=== PATIENT | female | born 1985 | race Two or more races ===

== ENCOUNTER 2019-12-22 17:49 | Emergency (ER) | payer OTHER ==
[~2019-12-22] VITALS: Ht 165.1 cm; Wt 122.0 kg
== END 2019-12-22 19:54 | disposition home or self-care (01) ==
LOC: ER 17:49
DX: M62.830 Muscle spasm of back (principal)

== ENCOUNTER 2022-11-18 09:38 | Outpatient (CLI) | payer OTHER | END 2022-11-18 09:46 | disposition home or self-care (01) | LOC: RX STUDY 09:38 | PROVIDERS: ATTEND Obstetrics & Gynecology Maternal & Fetal Medicine | DX: N80.9 Endometriosis, unspecified (principal) ==

== ENCOUNTER 2023-07-14 10:55 | Emergency (ER) | payer OTHER ==
[~2023-07-14] VITALS: Ht 165.1 cm; Wt 117.9 kg
[2023-07-14] MEDS ORDERED: VOTRIENT200 MG PO (11:22)
[2023-07-14 14:39] LABS: HEMOGLOBIN 10.3 g/dL (12.0-15.00); MEAN CORPUSCULAR HEMOGLOBIN 22.1 pg (27.00-32.0); MEAN CORPUSCULAR HGB CONC 32.1 g/dl (32.0-36.0); PLATELET COUNT 287 K/uL (150-450); RED BLOOD COUNT 4.65 M/uL (4.00-6.00); RED CELL DISTRIBUTION WIDTH 18.7 % (11.5-14.5)
[2023-07-14 14:41] LABS: MEAN CELL VOLUME 68.9 fL (80.00-100.00)
[2023-07-14 14:53] LABS: CALCIUM 9.1 mg/dL (8.5-10.1); CREATININE SERUM 0.62 mg/dL (0.55-1.02); GFR 108.91; POTASSIUM 3.58 mEq/L (3.5-5.1)
== END 2023-07-14 16:51 | disposition home or self-care (01) ==
LOC: ER 10:55
PROVIDERS: General Practice
DX: U07.1 COVID-19 (principal); E11.9 Type 2 diabetes mellitus without complications

== ENCOUNTER 2023-07-26 17:06 | Emergency (ER) | payer OTHER ==
[~2023-07-26] VITALS: Ht 160 cm; Wt 86.2 kg
[~2023-07-26 17:06] MED LIST: VOTRIENT200 MG PO
[2023-07-26] MEDS ORDERED: DUI500 PO (21:07)
== END 2023-07-26 21:42 | disposition home or self-care (01) ==
LOC: ER 17:07
DX: J06.9 Acute upper respiratory infection, unspecified (principal); J32.9 Chronic sinusitis, unspecified; Z91.013 Allergy to seafood

== ENCOUNTER 2025-04-07 07:08 | Emergency (ER) | payer OTHER ==
[~2025-04-07] VITALS: Ht 162.6 cm; Wt 105.7 kg
[~2025-04-07 07:08] MED LIST changes: +DUI500 PO
[2025-04-07] MEDS ORDERED: METFORMIN HCL500 MG (07:24)
[2025-04-07] MEDS ORDERED: LIDOCAINE HCL 1% 10ML VIAL ONE (08:52)
[2025-04-07] MEDS ORDERED: CEFTRIAXONE SODIUM 1,000 MG VIAL ONE (08:52)
[2025-04-07] MEDS ORDERED: CEFTRIAXONE SODIUM 1,000 MG VIAL IM ONE (09:00)
[2025-04-07 09:17] LABS: BASO % 0.4 % (0.1-1.2); EOS # 0.05 (0.04-0.54); EOS % 1.0 % (0.7-7.0); LYMPH # 1.42 (1.18-3.74); LYMPH % 28.7 % (19.3-53.1); MEAN PLATELET VOLUME 10.30 fl (9.4-12.4); MONO # 0.30 (0.24-0.82); MONO % 6.1 % (4.7-12.5); NEUT # 3.14 (1.56-6.13); NEUT % 63.6 % (34.0-71.1); RED CELL DISTRIBUTION WIDTH 13.4 % (11.6-14.4)
[2025-04-07 09:19] LABS: ERYTHROCYTE SEDIMENTATION RATE 71 mm/hr (0-20)
[2025-04-07 09:56] LABS: ALT/SGPT 25 U/L (12-78); AST/SGOT 13 U/L (15-37); BILIRUBIN TOTAL 0.29 mg/dL (0.3-1.2); BUN CREA RATIO 18 (7.0-25.0); CREATININE SERUM 0.55 mg/dL (0.55-1.02); GFR 123.70; GLOBULINA 4.5 G/DL (2.4-3.5); GLUCOSE FASTING 81 mg/dL (65-100); OSMOLALITY SERUM 277 MOSM/KG (275-295)
[2025-04-07] MEDS ORDERED: PEPCID AC20 MG PO (10:06)
[2025-04-07] MEDS ORDERED: CEFUROXIME500 MG PO (10:06)
== END 2025-04-07 10:11 | disposition home or self-care (01) ==
LOC: ER 07:08
PROVIDERS: General Practice
DX: M25.579 Pain in unspecified ankle and joints of unspecified foot (principal); E11.9 Type 2 diabetes mellitus without complications; Z79.84 Long term (current) use of oral hypoglycemic drugs; Z91.013 Allergy to seafood